=== PATIENT | male | born 1990 | race Caucasian/White ===

== ENCOUNTER 2016-07-31 01:50 | Emergency (ER) | payer MEDICAID | END 2016-07-31 04:32 | disposition home or self-care (01) | LOC: D.ER 01:50 | DX: J02.9 Acute pharyngitis, unspecified (principal); F41.9 Anxiety disorder, unspecified; F31.9 Bipolar disorder, unspecified; K27.9 Peptic ulcer, site unspecified, unspecified as acute or chronic, without hemorrhage or perforation ==

== ENCOUNTER 2017-10-11 00:50 | Emergency (ER) | payer MEDICAID | END 2017-10-11 02:14 | disposition home or self-care (01) | LOC: D.ER 00:50 | DX: S81.011A Laceration without foreign body, right knee, initial encounter (principal); W26.8XXA Contact with other sharp object(s), not elsewhere classified, initial encounter; Y93.89 Activity, other specified; Y92.019 Unspecified place in single-family (private) house as the place of occurrence of the external cause ==

== ENCOUNTER 2020-09-19 15:46 | Emergency (ER) | payer MEDICAID ==
[~2020-09-19] VITALS: Ht 177.8 cm; Wt 77.3 kg
[2020-09-19 15:47] VITALS: BP 150/86; Ht 177.8 cm; Wt 77.3 kg
[2020-09-19 17:06] LABS: BASOPHILS 0.2 % (0-2); EOSINOPHILS 0.7 % (0-7); HEMATOCRIT 44.9 % (42.0-54.0); HEMOGLOBIN 15.3 g/dL (13.5-17.5); IMMATURE GRANULOCYTES 0.2 % (0-5); LYMPHOCYTE ABS# 2.62 10x3/uL (1.32-3.57); LYMPHOCYTES 19.8 % (15-50); MCHC 34.1 g/dL (31.0-37.0); MEAN PLATELET VOLUME 9.4 fL (7.4-10.4); MONOCYTES 8.8 % (2-11); NEUTROPHIL ABS# 9.31 10x3/uL (1.78-5.38); NEUTROPHILS 70.3 % (40-80); PLATELET COUNT 294 10x3/uL (130-400); RDW 13.1 % (11.5-14.5); WBC 13.2 10x3/uL (4.8-10.8)
[2020-09-19 17:12] LABS: APTT 29.6 SECONDS (22.8-39.4); INR 1.21 (0.85-1.17); PROTIME 14.2 SECONDS (11.6-15.0)
[2020-09-19 17:21] LABS: CALC OSMOLALITY 280 mosm/kg (275-300); CALCIUM 8.8 mg/dL (8.5-10.1); CARBON DIOXIDE 28.3 mmol/L (21.0-32.0); CHLORIDE - SERUM 100 mmol/L (98-107); CREATININE - SERUM 1.2 mg/dL (0.6-1.3); GLUCOSE 78 mg/dL (74-106); POTASSIUM - SERUM 4.2 mmol/L (3.5-5.1); SODIUM 139 mmol/L (136-145); UREA NITROGEN 25 mg/dL (7-18); eGFR NON AFRICAN AMERICAN 75 mL/min (90-120)
[2020-09-19 17:27] LABS: ALBUMIN 4.4 g/dL (3.4-5.0); ALKALINE PHOSPHATASE 100 U/L (30-120); ALT (SGPT) 31 U/L (10-68); BILIRUBIN - TOTAL 0.65 mg/dL (0.2-1.3); PROTEIN - SERUM 7.7 g/dL (6.4-8.2)
[2020-09-19] MEDS ORDERED: CLEOCIN HCL300 MG PO (17:59)
[2020-09-19] MEDS ORDERED: DICLOFENAC SODI50 MG PO (17:59)
== END 2020-09-19 18:10 | disposition home or self-care (01) ==
LOC: D.ER 15:46
PROVIDERS: Family Medicine
DX: S70.02XA Contusion of left hip, initial encounter (principal); S61.412A Laceration without foreign body of left hand, initial encounter; F19.10 Other psychoactive substance abuse, uncomplicated; S51.019A Laceration without foreign body of unspecified elbow, initial encounter; W14.XXXA Fall from tree, initial encounter; Y93.9 Activity, unspecified; Y92.9 Unspecified place or not applicable